=== PATIENT | male | born 1960 | race Two or more races ===

== ENCOUNTER → 2024-10-10 | Outpatient (CLI) | payer MEDICAID, SELFPAY ==
--- NOTE | 2024-10-10 11:00 | XR_ITS ---
Examination: CT chest, without intravenous contrast. Sagittal and coronal 2-D reconstructions. Exam date and time: October 10, 2024 1103 hours Comparison 01/11/2024 INDICATIONS: Pulmonary nodules on CT chest 01/11/2024, February 24, 2023 CTDI:vol (mGy) 6.48 DLP: (mGycm) 252 Technique: Multiple 3.0 mm axial sections of the chest to been obtained. Bone and lung density settings are obtained. Sagittal and coronal 2-D reconstructions have been obtained. Low dose protocols were performed. One or more of the following dose reduction techniques were used; automated exposure control, adjustment of the mA and/or KV according to patient size, use of iterative reconstruction technique. Findings: No thoracic aortic aneurysmal dilatation Pulmonary artery segments are not enlarged No paratracheal tracheobronchial or bronchopulmonary adenopathy No definite change in multiple subcentimeter bilateral pulmonary nodules No pneumonia or pulmonary edema or pleural disease No visualized liver or splenic lesion Contracted gallbladder IMPRESSION: No definite change in multiple subcentimeter bilateral pulmonary nodules, no new pulmonary nodules Recommend 1 additional 6 month follow-up CT chest without contrast
== END | disposition home or self-care (01) ==
LOC: CCTX 10:30
PROVIDERS: PCP Physician Assistant; Referring Provider Physician Assistant; Visit Provider Physician Assistant
DX: R91.8 Other nonspecific abnormal finding of lung field (principal); F17.200 Nicotine dependence, unspecified, uncomplicated
CPT/HCPCS: 71250